=== PATIENT | female | born 1935 | race Caucasian/White ===

== ENCOUNTER 2019-06-06 08:49 | Outpatient (CLI) | payer MEDICARE ==
[2019-06-06] MEDS ORDERED: Gadobenate Dimeglumine 529 MG/1 ML (20ML VIAL) ONE (15:27)
--- NOTE | 2019-06-06 15:42 | PET ---
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 Exam requested for initial staging. Patient also has a history of breast cancer which was treated twelve years ago. TECHNIQUE: PET scan with CT attenuation correction was performed from the base of the brain to the proximal thig hs following the intravenous administration of 12.5 millicuries of 15-fluorodeoxyglucose in the right antecubital fossa. COMPARISON: None. CORRELATION: None. FINDINGS: There is hypermetabolic activity in the rectosigmoid with an SUV of 11.6. Hypermetabolic lymph nodes are seen in the mediastinum with the maximum SUV of 12.5 in the right justine hepatic region, 5.7 in the right hilum, 6 in the left hilum, 5.4 in the portacaval, 4.8 in the peripa ncreatic and 4 in the aortocaval lymph nodes. There is a hypermetabolic lung nodule in the right upper lobe with an SUV of 3.3. Numerous hypermetabolic liver lesions are seen with a maximum SUV of 10.5 in the right lobe and 7.1 i n the left lobe. There are hypermetabolic foci in the L3 vertebral body with an SUV of 7 and in the right humerus with an SUV of 5.4. No hypermetabolic adrenal nodules are seen. There is physiologic activity in the GI and tracts and the visualized portions of the brain. The CT scan used for attenuation correction demonstrates no evidence of pleural effusions or ascites. Numerous bilateral pulmonary nodules are seen, most of these measure up to 1 cm. Only one of these i s hypermetabolic and located in the right upper lobe. A 5.7 cm aneurysmal dilatation of the abdominal aorta is seen. There is sigmoid diverticulosis. IMPRESSION: 1. Findings are consistent with extensive metastatic disease. 2. A 5.7 cm Abdominal aortic aneurysm. POS: [facility]
--- NOTE | 2019-06-07 08:57 | MRI ---
MRI OF THE PELVIS WITH AND WITHOUT IV CONTRAST: INDICATION: Rectal cancer. COMPARISON: PET/CT dated 06/06/2019. TECHNIQUE: Multiplanar multisequence MR images were obtained of the pelvis with and without contrast utilizing 1 4 cc of MultiHance. FINDINGS: There is a large circumferential mass involving the upper, mid and lower rectum measuring 9 cm in its greatest length and extending down to the level of the anal verge. There is extension beyond the posterior wall of the rectum along its mid to lower segment with extramural tumor extending to the le juan of the posterior right lower mesial rectal fascia. No pathologically enlarged lymph nodes are grossly evident. There are scattered diverticula involving the colon. No free fluid is noted. There i s mild fluid distention of the left trochanteric bursa which may reflect mild trochanteric bursitis. IMPRESSION: T3 lesion of the upper to mid and lower rectum with mesorectal fascial involvement. No suspicious nod es are identified. This is consistent with a localized staging of T3 MRF positive-N0. Transcribed Date/Time: 06/07/2019 9:09 AM
== END 2019-06-06 08:50 | disposition home or self-care (01) ==
LOC: MRI 08:49 → TBSIIMAG 08:50
PROVIDERS: ATTEND Internal Medicine Hematology & Oncology
DX: C20 Malignant neoplasm of rectum (principal); I71.4 Abdominal aortic aneurysm, without rupture
CPT/HCPCS: 72197; 78815; A9552; A9577

== ENCOUNTER 2019-08-13 14:13 | Outpatient (CLI) | payer MEDICARE ==
--- NOTE | 2019-08-13 14:43 | PET ---
EXAM: PET/CT HISTORY: Rectal cancer; response to chemotherapy TECHNIQUE: PET scanning with CT attenuation correction was performed from the base of the brain to the proximal thighs following the intravenous administration of 10.6 millicuries [id number]. COMPARISON: PET/CT dated June 06, 2019 FINDINGS: Biodistribution:The biodistribution for the exam appears acceptable. Head and neck: There is appropriate background activity within the brain. No hypermetabolic lymphaden opathy is grossly evident. There is some slightly increased activity seen within the thyroid gland Thorax: There has been reduction in the hypermetabolic uptake involving the scattered metastatic pulm onary lesions. Previously seen 1.6 cm left upper lobe pulmonary nodule now measures 1.3 cm with a peak activity of 1.71 whereas a peak activity on prior exam and was 2.32. The mean activity now is 1. 43 where previously was 1.68. A 1.2 cm right upper lobe pulmonary nodule previously measuring 1.7 cm now has a peak activity at 2.81 and a mean activity 2.08 were previously it had a peak activity at 8.48 and a mean activity of 5.14. Many of the mediastinal and hilar enlarged lymph nodes demonstrate decreased metabolic uptake. One of the most conspicuous was within the precarinal region. The lymph node previously had a peak activity of 12.5 to now has a peak activity at 2.77 and a mean activity of 2.21. Many of these lymph nodes are slightly less prominent in size. Abdomen and pelvis: There is expected background activity within the GI and systems.There is decre ase in metabolic activity associated with many of the hypermetabolic metastatic lesions of the liver. One of the most conspicuous lesions is seen within the lateral left hepatic lobe now measuring 4.8 cm. This lesion has a peak activity of 4.8 and mean activity of 3.8. There is a large hypermetabolic lesion still remaining in the right anterior hepatic dome with a peak activity 9.8 and mean activity 7.14. The peak activity is lesion was previously 10.64. There is been resolution of the hypermetabolic activity involving the portacaval lymphadenopathy. No new hypermetabolic retroperi toneal lymphadenopathy is evident. There is a stable 5.6 cm infrarenal abdominal aortic aneurysm. The hypermetabolic uptake seen circumferentially involving the mid to lower rectum is relatively stab le. Peak activity associated with the rectal mass is 12.81 and mean activity of 10.81. Previously the peak activity was 11.76 with a mean activity 9.09. There is slightly more activity seen extending beyond the right posterolateral margin of the mid to lower rectum to the level of the levator ani indicating worsening extramural extension of disease. This is best seen on image [address] examin ation. Osseous structures and skin: There is now diffuse increased marrow activity throughout the pelvis, pr oximal femurs and spine likely reflective of marrow stimulation from chemotherapy. The previously noted hypermetabolic lesions within the L3 vertebral body consistent with metastatic disease is obscu red by this background marrow activity. Small focus of activity previously seen within the proximal right humerus is also obscured by background marrow activity. IMPRESSION: Abnormal PET/CT. 1. Findings a mixed response to therapy. The rectal mass demonstrates persistent prominent hypermetab olic activity with worsening disease extension along the right posterolateral aspect of the lower rectum consistent with worsening extramural spread of disease. There has been changes of response to therapy involving a malignant lymphadenopathy, pulmonary metastatic disease and hepatic metastatic disease. 2. Diffuse increased marrow activity seen throughout the visualized axial skeleton and proximal appen dicular skeleton likely reflective of underlying marrow stimulation from chemotherapy. The degree of background uptake limits evaluation of metastatic disease previously seen within the lumbar spine and proximal right humerus.
== END 2019-08-13 14:14 | disposition home or self-care (01) ==
LOC: PET 14:13
PROVIDERS: ATTEND Internal Medicine Hematology & Oncology
DX: C20 Malignant neoplasm of rectum (principal); K62.89 Other specified diseases of anus and rectum; R59.0 Localized enlarged lymph nodes; C78.7 Secondary malignant neoplasm of liver and intrahepatic bile duct; C78.00 Secondary malignant neoplasm of unspecified lung
CPT/HCPCS: 78815; A9552

== ENCOUNTER 2019-10-30 16:00 | Inpatient (IN) | payer MEDICARE ==
--- NOTE | 2019-10-30 16:29 | RAD ---
EXAM: CHEST ONE VIEW HISTORY: Dyspnea. Malignant neoplasm of rectum. COMPARISON: PET/CT exam on 08/13/2019. FINDINGS: There is opacification of approximately two thirds the left hemithorax likely related to a large left pleural effusion and atelectasis. Underlying lesion cannot be entirely excluded. The left cardiac border is obscured. There are a few scattered pulmonary nodules seen at the right lung base with sugg estion of additional very small pulmonary nodules in each upper lobe. A right internal jugular vein CT injectable Mediport catheter is noted in place the tip overlying the most proximal SVC. Vascular calcifications are seen in the thoracic aorta. There is suggestion of mild nodular prominence in the left hilar region which could be related to lymphadenopathy or promine nce of the pulmonary artery segment in this region. Degenerative changes are seen in the spine. Surgical clips overlie the right upper quadrant IMPRESSION: 1. Moderately large left pleural effusion and atelectasis. Underlying lesion could not be entirely ex cluded. 2. Bilateral pulmonary nodules suggesting metastatic disease. 3. Suggested nodular prominence in a left hilar region which could be related to lymphadenopathy. Thi s difficult to adequately evaluate on this exam.
[2019-10-30] MEDS ORDERED: Cefepime 1 GM VIAL ONE (16:32)
[2019-10-30 16:33] LABS: #Lymphocytes 0.4 thou/uL (1.20-3.40); #Monocytes 1.1 thou/uL (0.11-0.59); #Neutrophils 8.9 thou/uL (1.40-6.50); %Basophils 0.1 % (0.0-1.0); %Eosinophils 0.3 % (0.0-10.0); %Lymphocytes 3.7 % (21.0-51.0); %Monocytes 10.4 % (0.0-10.0); %Neutrophils 85.4 % (42.0-75.0); Hemoglobin 13.7 g/dL (12.0-16.0); Mean Corpuscular HGB CONC 31.8 g/dL (32.0-36.0); Mean Corpuscular Hemoglobin 32.9 pg (27.0-31.0); Mean Platelet Volume 6.7 fL (7.4-10.4); Platelet Count 223 thou/uL (130-400); RBC Distribution Width 18.4 % (11.5-14.5); Red Blood Cell (RBC) Count 4.18 mill/uL (4.20-5.40); White Blood Cell (WBC) Count 10.4 thou/uL (4.8-10.8)
[2019-10-30 16:35] LABS: Actual Bicarbonate (HCO3a) 31.8 mEq/L (22-28); Analyzer IN Cardio ER; Base Excess (BEa) 3.7 mEq/L (-2.0 to +3.0); Calcium, Ionized 1.16 mmol/L (1.12-1.30); Carboxyhemoglobin (COHb) 0.8 gm% (0.0-3.0); O2 Tension (PaO2) 69.8 mmHg (> 60.0); Potassium - ABG Lab 4.16 mmol/L (3.70-5.30); pH, Arterial 7.31 (7.35-7.45)
[2019-10-30 16:37] LABS: Puncture Site LB
[2019-10-30 16:50] LABS: ALT (SGPT) 23 U/L (8-55); AST (SGOT) 46 U/L (5-34); Albumin 3.4 g/dL (3.4-4.8); Alkaline Phosphatase 208 U/L (40-110); Anion Gap 14 mmol/L (10-20); BUN (Urea Nitrogen) 19 mg/dL (9.8-20.1); Bilirubin, Total 0.4 mg/dL (0.2-1.2); CK (CPK) 157 U/L (29-168); Calc. Creatinine Clearance 0 mL/min (70-130); Calcium 8.6 mg/dL (7.8-10.44); Carbon Dioxide 30 mmol/L (23-31); Chloride 95 mmol/L (98-107); Estimated GFR-MDRD 70; Globulin 2.8 g/dL (2.4-3.5); Glucose 128 mg/dL (83-110); Potassium 4.5 mmol/L (3.5-5.1); Protein, Total 6.2 g/dL (6.0-8.3); Sodium 134 mmol/L (136-145)
[2019-10-30 16:57] LABS: Anisocytosis SLIGHT = 6-15 cells (100X) (0-5/hpf); Band 4 % (5-11); Lymphocytes 3 % (21-51); MDiff Complete? YES; Macrocytosis SLIGHT = 6-15 cells (100X) (0-5/hpf); Monocytes 8 % (0-10); Neutrophil 84 % (42-75); Platelet Morphology Comment Appears Adequate; Polychromasia SLIGHT = 2-3 cells (100X) (0-2/hpf); Reactive Lymphocytes 1 % (0-10)
[2019-10-30 17:06] LABS: Bacteria/HPF None Seen HPF (None Seen); Bilirubin Negative (Negative); Blood, Urine Negative (Negative); Clarity Clear (Clear); Glucose, Urine (Dipstick) Normal (Negative); Leukocyte 250 Leu/uL (Negative); Nitrite Negative (Negative); Protein, Urine (Dipstick) 50 mg/dL (Neg-Trace); RBC/HPF 0-3 HPF (0-3); Squamous Epithelial 0-3 HPF (0-3); Urobilinogen Normal mg/dL (Less than 2)
[2019-10-30] MEDS ORDERED: Acetaminophen 325 MG TAB PO PRN (19:41)
[2019-10-30] MEDS ORDERED: Guaifenesin DM 100-10/5 ML UDCUP PO PRN (19:41)
[2019-10-30] MEDS ORDERED: Ondansetron ODT 4 MG TAB PO PRN (19:41)
[2019-10-30] MEDS ORDERED: Acetaminophen 650 MG Suppository PR PRN (19:41)
[2019-10-30] MEDS ORDERED: Senokot S 8.6-50 MG TAB PO PRN (19:41)
[2019-10-30] MEDS ORDERED: Ondansetron PF 4 MG/2 ML Vial IVP PRN (19:41)
--- NOTE | 2019-10-30 20:11 | HP ---
PRIMARY CARE PHYSICIAN: Fabio Edgar in [place]. CHIEF COMPLAINT: Shortness of breath. HISTORY OF PRESENT ILLNESS: This is an 84-year-old white female with a known history of metastatic rectal cancer, metastatic to the lungs and abdomen. She has had a significant decline over the last 2 weeks, has had a lot of swelling in her lower extremities and her arms as well. She has been getting radiation therapy further. The primary cancer in her rectum with lots of diarrhea and irritation of the tissues secondary to this, and then she started having some difficulty breathing starting over the weekend. This progressed over the last few days. She had radiation therapy appointment and went to see Dr. Torres and he found that her O2 sats were 60% on room air, so she sent to the emergency room. She was found to be in respiratory distress by the ER physician. He initially thought he might have to intubate, but was able to get her calmed down with a BiPAP. Her oxygen saturations are now running well. She is here, is much more comfortable and has actually falling asleep, now that she does not have to struggle so hard to breathe. All history taken from the ER physician and from one of the sons, who was at bedside. The patient's son reports that the patient has been getting a little confused over the weekend as well. No fevers. No coughing. No history of asthma or lung disease. REVIEW OF SYSTEMS: Unable to obtain secondary to the patient's somnolent mental status and being on the BiPAP mask. When I do wake her up, she is a little bit confused and can answer some basic questions. PAST MEDICAL HISTORY: 1. Rectal cancer with metastases all over her body. 2. History of breast cancer. 3. Hypertension. 4. Hypothyroidism. PAST SURGICAL HISTORY: 1. Bladder lift. 2. Hysterectomy. SOCIAL HISTORY: The patient used to smoke cigarettes, but quit several decades ago. She drinks socially. No illicit drug use. She is a , lives by herself with two of her sons and her daughter in [place], taking care of her. She also has a son, who is a hook and eye attacher in [place]. She normally gets around with a walker in the home. She has had several falls over the weekend, though she has more weak and short of breath. FAMILY HISTORY: No significant contributing family history. ALLERGIES: MORPHINE. CURRENT MEDICATIONS: Unknown. Son here does not have her medication list and the patient is not able to tell us what she is on right now, though they do know she has been told to take some Imodium due to diarrhea causing a diaper type rash since getting the radiation therapy. PHYSICAL EXAMINATION: VITAL SIGNS: Blood pressure 128/69, pulse 79, respirations 16, temperature 98.1, and O2 saturation 97% on BiPAP. GENERAL: This is a well-developed, obese white female, who is very somnolent right now, but breathing comfortably on the BiPAP. HEENT: Pupils equal, round, and reactive to light. Oropharynx clear without lesions, erythema, or exudate. NECK: Supple. No lymphadenopathy. No thyroid nodules or enlargement. HEART: Regular rate and rhythm. No murmurs, rubs, or gallops. LUNGS: The patient has good breath sounds on the right. Some decreased breath sounds in the left base. No significant increased work of breathing or tachypnea currently. ABDOMEN: Soft, obese, and nontender to palpation. Normoactive bowel sounds. No hepatosplenomegaly or other masses. EXTREMITIES: The patient has 2+ pitting edema in the bilateral lower extremities and some mild edema in the bilateral upper extremities. SKIN: No rashes or lesions noted. NEUROLOGIC: The patient is moving all extremities and no facial droop. PSYCHIATRIC: The patient is somnolent, is able to tell me whom she is, but is little confused about where she is right now. LABORATORY DATA: CBC with a normal white blood cell count, normal hemoglobin and hematocrit, normal platelet count. Complete metabolic panel notable for sodium of 134, chloride 95, glucose 128. AST of 46, and alkaline phosphatase of 208. The rest was normal. Lactic acid was negative. Troponin was negative x1. Urinalysis showed some moderate leuk esterase, 11 to 20 white blood cells, but no bacteria. Her ABG done on BiPAP showed a pH of 7.31, pCO2 of 65, and a pO2 of 69. X-ray, I did review the chest x-ray done in the emergency room along with the radiologist's report. It does show a moderately large left pleural effusion obscuring about 2/3 of the left hemithorax, also shows some bilateral pulmonary nodules suggesting metastatic disease. ASSESSMENT: 1. Acute hypoxic and hypercapnic respiratory failure. The patient is improved on BiPAP. However, she is very somnolent. The concern is that she will may decline with further CO2 retention. If that is the case, then she may end up needing intubation, for now though she is breathing easily and saturating well. I did discuss the possibly of intubation with son, who is here and he stated that his mom as far as they know was expressed that she wanted all initial resuscitation things done including chest compression, shocks, and intubation. 2. Pleural effusion, likely malignant. No evidence of infection at this time. The patient was given IV antibiotics in the emergency room, but will likely continue those unless we find evidence of infection. Dr. Goldman was consulted by the emergency room. His plan is to do a thoracentesis in the morning. 3. Metastatic rectal cancer. We will have Oncology consult outpatient from the hospital. 4. Severe bilateral lower extremity edema with a normal albumin and no history of congestive heart failure. We will check a brain natriuretic peptide, however, suspicious that this is more due to her cancer. We will check a bilateral lower extremity Doppler, though to see, make sure she does not have DVTs. 5. Gastrointestinal prophylaxis, put the patient on Pepcid twice a day. 6. Deep venous thrombosis prophylaxis, put the patient on Lovenox subcu. CODE STATUS: The patient is currently a full code. Her medical power of real estate associate attorney per the brother, Radha is her oldest son, whose name is Hector Tomas as well as her daughter, Marcelina Avalos. Job ID: [id number]
[2019-10-30] MEDS: Famotidine 20 MG TAB PO SCH (20:49)
[2019-10-31 04:03] LABS: Anion Gap 11 mmol/L (10-20); BUN (Urea Nitrogen) 16 mg/dL (9.8-20.1); Calc. Creatinine Clearance 76 mL/min (70-130); Calcium 8.1 mg/dL (7.8-10.44); Carbon Dioxide 27 mmol/L (23-31); Chloride 99 mmol/L (98-107); Estimated GFR-MDRD 88; Glucose 84 mg/dL (83-110); Potassium 4.4 mmol/L (3.5-5.1); Sodium 133 mmol/L (136-145)
[2019-10-31 04:41] LABS: Band 10 % (5-11); Hemoglobin 11.5 g/dL (12.0-16.0); Lymphocytes 4 % (21-51); MDiff Complete? YES; Mean Corpuscular HGB CONC 32.1 g/dL (32.0-36.0); Mean Corpuscular Hemoglobin 33.1 pg (27.0-31.0); Mean Platelet Volume 6.6 fL (7.4-10.4); Monocytes 9 % (0-10); Neutrophil 77 % (42-75); Platelet Count 178 thou/uL (130-400); RBC Distribution Width 18.4 % (11.5-14.5); Red Blood Cell (RBC) Count 3.48 mill/uL (4.20-5.40); White Blood Cell (WBC) Count 9.4 thou/uL (4.8-10.8)
[2019-10-31 08:39] LABS: Pleural Fluid, Protein 3.1 g/dL; RBC Count-Automated (BF) 92626 /cumm; WBC/Nucleated-Auto (BF) 257 uL
[2019-10-31 08:59] LABS: BF Color Red; Body Fluid Source Thoracentesis Fluid; Clarity Cloudy/Turbid (Clear); Tube # 3
[2019-10-31] MEDS ORDERED: Prevnar 13-Val Conj/PF 0.5 ML SYRINGE IM ONE (09:00)
[2019-10-31] MEDS ORDERED: FLU VACC TS2019-20(65YR UP)/PF 180 MCG/0.5 ML SYRINGE IM ONE (09:00)
[2019-10-31 09:02] LABS: Fluid, pH - Pleural Fld Greater than 7.50 (7.60 - 7.66)
--- NOTE | 2019-10-31 09:25 | RAD ---
PORTABLE CHEST: Date: 10/31/2019 HISTORY: Thoracentesis. COMPARISON: 10/30/2019. FINDINGS: The large left effusion noted on 10/30/2019 has been removed. There continue to be small bilateral ef fusions. No pneumothorax. The MediPort catheter is unchanged. No other significant change. IMPRESSION: Post left thoracentesis. Small bilateral effusions remain, slightly larger on the left. No evidence o f pneumothorax. POS: [facility]
[2019-10-31] MEDS: Famotidine 20 MG TAB PO SCH ×2 (09:49→20:19)
[2019-10-31] MEDS: Enoxaparin Sodium 40 MG/0.4 ML SYRINGE SC SCH (09:50)
[2019-10-31 10:10] LABS: BF Segmented Neutrophils 14 %; Cell Count Non Hematic 62 %; Eosinophils 4 %; Lymphocytes 20 %
--- NOTE | 2019-10-31 10:12 | PDOC.HOSPP ---
- Subjective Encounter Date: 10/31/19 Encounter Time: 11:30 Subjective: Patient feeling much better after 2.5L of fluid removed by thoracentesis this AM. Off BiPAP, breathing easily on nasal cannula. No other complaints. - Objective Vital Signs & Weight: Vital Signs (12 hours) Temp Pulse Resp Pulse Ox 10/31/19 08:22 83 28 H 90 L 10/31/19 08:00 98.3 F 93 L 10/31/19 03:32 98.2 F 10/31/19 00:00 98.9 F Weight Weight 166 lb Most Recent Monitor Data Heart Rate from ECG 74 NIBP 134/61 NIBP BP-Mean 85 Respiration from ECG 17 SpO2 93 Result Diagrams: 10/31/19 03:21 10/31/19 03:21 Hospitalist ROS - Review of Systems Constitutional: denies: fever, chills Respiratory: denies: cough, shortness of breath Cardiovascular: reports: edema. denies: chest pain, palpitations Gastrointestinal: denies: nausea, vomiting, abdominal pain Genitourinary: denies: dysuria, hematuria - Medication Medications: Active Medications Generic Name Dose Route Start Last Admin Trade Name Freq PRN Reason Stop Dose Admin Albuterol/Ipratropium 3 ml 10/31/19 08:14 10/31/19 08:22 Duoneb NEB 3 ml [id number] PRN Administration SOB &/or Wheezing Enoxaparin Sodium 40 mg 10/31/19 09:00 10/31/19 09:50 Lovenox SC 40 mg 0900 EV Administration Famotidine 20 mg 10/30/19 21:00 10/31/19 09:49 Pepcid PO 20 mg BID EV Administration Levofloxacin 750 mg/ Device 150 mls @ 100 mls/hr 10/31/19 09:00 10/31/19 09: 50 IVPB 150 mls Q24HR EV Administration - Exam General Appearance: NAD, awake alert ENT: moist mucosa Heart: RRR, no murmur, no gallops, no rubs Respiratory: CTAB Respiratory - other findings: good air movement bilaterally Gastrointestinal: soft, non-tender, non-distended, normal bowel sounds Extremities: 2+ LE edema Neurological: no focal deficits Psychiatric: normal affect, normal behavior, A&O x 3 Hosp A/P (1) Acute respiratory failure with hypoxia and hypercarbia Code(s): J96.01 - ACUTE RESPIRATORY FAILURE WITH HYPOXIA; J96.02 - ACUTE RESPIRATORY FAILURE WITH HYPERCAPNIA Status: Acute (2) Pleural effusion Code(s): J90 - PLEURAL EFFUSION, NOT ELSEWHERE CLASSIFIED Status: Acute (3) Rectal cancer metastasized to lung Code(s): C20 - MALIGNANT NEOPLASM OF RECTUM; C78.00 - SECONDARY MALIGNANT NEOPLASM OF UNSPECIFIED LUNG Status: Acute (4) Lower extremity edema Code(s): R60.0 - LOCALIZED EDEMA Status: Acute - Plan Patient s/p thoracentesis today, CXR with minimal fluid remaining Heme/Onc consult- awaiting fluid analysis, if is malignant effusion will recommend transition to hospice Palliative care LE doppler negative for DVT DVT proph: Lovenox GI proph: Pepcid
[2019-10-31] MEDS ORDERED: Polyethylene Glycol 3350 17 GM Packet PO PRN (10:15)
[2019-10-31] MEDS ORDERED: Lorazepam 0.5 MG TAB PO PRN (10:15)
--- NOTE | 2019-10-31 10:22 | CON ---
DATE OF CONSULTATION: HISTORY OF PRESENT ILLNESS: Ms. Tomas is an 84-year-old female from [place], [place], presented to the hospital with shortness of breath. Former smoker. Denies any chills or sweats. She was coughing without any fever. She apparently fell several times, has a bruise in the left chest. X-ray showed rather large left pleural effusion. She has difficulty with ambulation. No prior history of pneumonia, TB, or asthma. PAST MEDICAL HISTORY: 1. History of rectal cancer. 2. History of breast cancer. 3. Hypothyroidism. 4. Hypertension. PAST SURGICAL HISTORY: Previous surgeries include; 1. Hysterectomy. 2. Bladder lift surgery. Former smoker. HOME MEDICATIONS: Include; 1. Zoloft 50. 2. Synthroid 100. 3. Ativan 0.5. 4. Benazepril 20. 5. Amlodipine 10. REVIEW OF SYSTEMS: Otherwise unremarkable. PHYSICAL EXAMINATION: VITAL SIGNS: Blood pressure 119/72, pulse 75, respiratory rate 18, saturations are 95% on BiPAP, the patient's nasal O2 is 94%. CHEST: Decreased breath sounds in left lung. Right lung, unremarkable. CARDIAC: Normal S1, S2. No gallops. ABDOMEN: No masses. LABORATORY AND DIAGNOSTIC DATA: X-ray shows a very large left-sided pleural effusion consistent with metastatic disease. Additional lab data shows white count 9,000, H and H of 11 and 36, platelet count 178. Blood gas; pO2 is 69, pCO2 is . Lytes normal. Sodium 133. BNP is normal. ASSESSMENT AND PLAN: Respiratory failure secondary to large pleural effusion, metastatic cancer, history of breast cancer, history of rectal cancer, apparently on chemoradiation, followed by local Oncology. Former smoker. Thoracentesis needs to be performed. Otherwise, neb treatment, supportive care, empiric steroids. We will follow. Consultation note 70 minutes, 50% direct patient care, this is being followed by thoracentesis. Job ID: [id number]
[2019-10-31] MEDS ORDERED: traMADol HCl 50 MG TAB PO PRN (10:45)
--- NOTE | 2019-10-31 11:22 | ULT ---
ULTRASOUND WITH DOPPLER DUPLEX VENOUS LOWER EXTREMITIES BILATERAL: HISTORY: An 84-year-old female with bilateral lower extremity edema. TECHNIQUE: Color-flow Doppler, spectral wave-form analysis of pulsed Doppler and ellsworth-scale imaging with aniya chris and augmentation were used to evaluate the bilateral common femoral, femoral, popliteal, posteri or tibial and superficial femoral, veins and the proximal portions of the profunda femoral and greate r saphenous veins. FINDINGS: There is normal compressibility, demonstration of blood flow by color Doppler and pulsed Doppler and response to augmentation in all interrogated veins. In the left popliteal fossa there is an approximately 4 x 1 x 2.5 cm cystic lesion. There is at least mild superficial soft tissue edema in the bilateral lower extremities. IMPRESSION: 1. No deep vein thrombosis in the bilateral lower extremities. 2. Bilateral lower extremity soft tissue edema. 3. Left 's cyst. jnr POS: [facility]
[2019-10-31] MEDS: methylPREDNISolone Sod Succ 40 MG VIAL IVP SCH ×2 (12:05→18:07)
--- NOTE | 2019-10-31 12:11 | CON ---
DATE OF CONSULTATION: REASON FOR CONSULTATION: Rectal cancer. HISTORY OF PRESENT ILLNESS: Ms. Tomas is an 84-year-old female with stage IV rectal adenocarcinoma. She was initially treated with chemo with partial response. She then started radiation with Xeloda in September. This past week, she has been off radiation secondary to wound in her perineum. She has been having increasing shortness of breath. She has fallen at home. She saw Dr. Torres yesterday to discuss resuming radiation. She was extremely weak and her room air O2 saturation was 60%. She was brought to the emergency room for evaluation. Chest x-ray showed a large left pleural effusion. She had bilateral pulmonary nodules, suggestive of metastatic disease. Dr. Goldman was consulted and performed a thoracentesis. Cytology currently pending. The patient is breathing more comfortable, her O2 saturation is now 90% on nasal cannula. She was seen at bedside with her 2 children present. She is able to speak in complete sentences, complains of rectal pain only. PAST MEDICAL HISTORY: 1. Stage IV malignant adenocarcinoma of the rectum. 2. Hypertension. 3. High cholesterol. 4. Arthritis. 5. Thyroid disease. 6. Hemorrhoids. 7. Breast cancer in 2008. PAST SURGICAL HISTORY: 1. Carpal tunnel syndrome repair. 2. Lumpectomy. 3. Cholecystectomy. 4. Appendectomy. 5. Hysterectomy. ALLERGIES: TO MORPHINE. HOME MEDICATIONS: 1. Amlodipine 10. 2. Benazepril 20. 3. Xeloda. 4. Lorazepam 0.5. 5. Sertraline 50. 6. Synthroid 100 mcg. FAMILY HISTORY: Brother had esophageal cancer. SOCIAL HISTORY: She is a , has 4 children. Lives alone. No alcohol, tobacco, or illicit drug use. REVIEW OF SYSTEMS: A 10-point review of systems is negative except for noted in HPI. PHYSICAL EXAMINATION: VITAL SIGNS: Temperature is 98.3, heart rate 75, respiratory rate 18, BP is 104/60, and she is 91% on 5 L. GENERAL: This is a chronically ill-appearing female, in no acute distress. HEENT: Normocephalic and atraumatic. Pupils equal and reactive to light. NECK: Supple. CV: Regular rate and rhythm. LUNGS: Clear anterior. ABDOMEN: Soft and nontender. Bowel sounds are positive. EXTREMITIES: No clubbing or cyanosis. SKIN: She has breakdown in her perineum from radiation. : Christensen catheter in place with clear yellow urine. HEMATOLOGIC: No petechiae or purpura. NEUROLOGIC: Nonfocal. PERTINENT LABORATORY DATA AND X-RAYS: Current WBCs are 9.4, hemoglobin 11.5, hematocrit 36.0, and platelet count 178,000. She has 77% neutrophils, 10% bands, and 4% lymphocytes. Sodium is 133, potassium 4.4, chloride 99, CO2 is 27, BUN is 16, creatinine 0.64, lactic acid is 2, calcium 8.1, total bilirubin is 0.4, AST is 46, ALT is 23, and alkaline phosphatase is 208. Troponin is negative. BNP is 129. Serum total protein 6.2, albumin 3.4, and globulin 2.8. ASSESSMENT: 1. Metastatic rectal adenocarcinoma, currently on chemo radiation. 2. Pleural effusion, likely malignant. DISCUSSION: The patient has been symptomatically improved with her thoracentesis. Await cytology, although this is likely malignant. The patient agrees that she is unable to live by herself any longer. We will ask spring encaser to see the patient to discuss long term versus a custodial. The family understands that if this is progression while on Xeloda and radiation, she will likely be referred to hospice. Case was discussed with Dr. Philip. Thank you for the consult. Job ID: [id number]
--- NOTE | 2019-10-31 12:12 | OP ---
DATE OF PROCEDURE: 10/31/2019 PROCEDURE PERFORMED: Left-sided thoracentesis. INDICATION: Pleural effusion. DESCRIPTION OF PROCEDURE: After informed consent, the left posterior thorax was cleaned with chlorhexidine and 1% lidocaine was infiltrated in the 9th intercostal space in the posterior axillary line. Pleural cavity entered and bloody effusion was removed. Thereafter, using an 8-Haitian catheter, a total of 2500 mL was removed without difficulty. The patient's pleural fluid was sent for cytology and culture. The patient tolerated the procedure well, awaiting results of the sample from the procedure above. Job ID: [id number] MTDD
--- NOTE | 2019-10-31 14:52 | PDOC.PALCO ---
Palliative Care Consult - Consult Details Requesting Physician: Dr Branch Reason for Consult: goals of care, advance directives assistance, family support Family Members Present: Patient son and daughter in law. - Pertinent HPI 84 year old female who has been receiving treatment at the oncology clinic for stage IV rectal adenocarcinoma. She was initially treated with chemo then radiation and Xeloda. Not able to tolerate radiation this week secondary to the wound to her perineum. Patient and family confirm increase in shortness of breath at home, began having to use a walker, and has had two recent falls. This is unusual for Ms Tomas as she has been active and living independently. { resented to the clinic and found to have a poor o2 saturation, sent to the emergency room for evaluation. Chest x-ray identified left pleural effusion and bilateral pulmonary nodules that are thought to be metastatic disease. Admitted for further evaluation to [facility], Dr Goldman performed a thoracentesis, cytology pending. - Pertinent PMH IV Malignant adenocarcinoma of the rectum, HTN, HDL, Thyroid disease, Breast CA 2008 - Social History Smoking Status: Former smoker Smoking: quit greater than 1 year Alcohol Use: none Drug Use History: none Living Situation: independent - Medications MAR Reviewed: Yes - Allergies Allergies/Adverse Reactions: Allergies Allergy/AdvReac Type Severity Reaction Status Date / Time morphine Allergy Unknown Verified 10/31/19 02:06 - Subjective Awake, eating lunch. Noted to become short of breath with conversation. Pain to perineum. - ROS Constitutional: alert, weakness Eyes: other ENT: other (negative for difficulity swallowing) Respiratory: shortness of breath - Objective Vital Signs: Vital Signs - Most Recent Temp Pulse Resp BP Pulse Ox 98.7 F 83 28 H 90 L 10/31/19 12:00 10/31/19 08:22 10/31/19 08:22 10/31/19 08:22 - Physical Exam Respiratory: no wheezing Deviation from normal: mildly labored with conversation Cardiovascular: RRR Gastrointestinal: soft, non-tender Genitourinary: to catheter Musculoskeletal: no cyanosis, no clubbing, edema present Neurology: moves all 4 limbs Skin: cap refill <2 seconds, normal turgor, bruising Deviation from normal: wound to perineum Psychiatric: A&O x 3, normal affect - Problem List (1) Palliative care encounter Code(s): Z51.5 - ENCOUNTER FOR PALLIATIVE CARE Current Visit: Yes Status: Acute (2) Physical deconditioning Code(s): R53.81 - OTHER MALAISE Current Visit: Yes Status: Acute (3) Acute respiratory failure with hypoxia and hypercarbia Code(s): J96.01 - ACUTE RESPIRATORY FAILURE WITH HYPOXIA; J96.02 - ACUTE RESPIRATORY FAILURE WITH HYPERCAPNIA Current Visit: Yes Status: Acute (4) Lower extremity edema Code(s): R60.0 - LOCALIZED EDEMA Current Visit: Yes Status: Acute (5) Pleural effusion Code(s): J90 - PLEURAL EFFUSION, NOT ELSEWHERE CLASSIFIED Current Visit: Yes Status: Acute (6) 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 Medical Power of Peer Support Specialist and Advance directives on the chart. Discussed pending results with the son. Family had been looking at transitioning to assisted living as they feel it is unsafe for her to continue to live independently, but now feel that she will need a higher level of care. [facility] may be a resource as patient lives in [place] but does not desire to go to another facility "[facility]". Son states that he and his siblings have been discussing his mothers decline prior to recent findings of pulmonary nodules with pulmonary effusion. Interested in Hospice and asked questions in relation to what hospice offers. Family understands that Medicare does not pay for both intermediate and hospice. Ms Tomas is a patient of Dr Trejo in [place] and he has privileges at [facility]. Consideration may be given to discussing with Dr Trejo to accept patient with comfort measures at the facility. Dianne Concepcion RNclaims correspondence clerk also following patient, please see RN notes in note section. [75] minutes spent on this encounter with >50% of the time in counseling and coordination of care. Thank you for this very appropriate consult.
[2019-10-31 15:07] VITALS: BMI 25.9
[2019-10-31] MEDS: traMADol HCl 50 MG TAB PO PRN (20:18)
[2019-10-31] MEDS ORDERED: Non-Formulary Item 1 EACH (Sertraline Hcl [Sertraline Hcl] 50 MG) PO SCH (21:00)
[2019-11-01] MEDS: methylPREDNISolone Sod Succ 40 MG VIAL IVP SCH ×2 (00:15→06:19)
[2019-11-01] MEDS ORDERED: Non-Formulary Item 1 EACH (Gluc Su/Chondro Su A/Vit C/Mn [Glucosamine 1,500 Complex Capsu PO SCH (09:00)
[2019-11-01] MEDS ORDERED: GLUCOSAMINE COMPLEX PO SCH (09:00)
[2019-11-01] MEDS ORDERED: Fish Oil 1,000 MG CAP PO SCH (09:00)
[2019-11-01] MEDS ORDERED: CHONDROITIN SULFATE A SODIUM 1200 MG PO SCH ×2 (09:00)
--- NOTE | 2019-11-01 09:30 | PRG ---
DATE OF SERVICE: 11/01/2019 SUBJECTIVE: This morning, she is awake, alert, and responsive, better, less pain, less shortness of breath. OBJECTIVE: VITAL SIGNS: Saturations are 95% on 2 L, temperature 97, pulse 81, blood pressure 113/65. CHEST: No wheezing or crackles. CARDIAC: Normal S1 and S2. No gallops. ABDOMEN: No masses. IMPRESSION: 1. Bloody right pleural effusion, exudative. 2. Previous history of rectal cancer. PLAN: Pulmonary yanez, disposition as per Oncology. Switch over to oral medication. Job ID: [id number]
[2019-11-01] MEDS: traMADol HCl 50 MG TAB PO PRN ×2 (10:24→18:51)
[2019-11-01] MEDS: Enoxaparin Sodium 40 MG/0.4 ML SYRINGE SC SCH (10:26)
[2019-11-01] MEDS: Levothyroxine Sodium 100 MCG TAB PO SCH (10:27)
[2019-11-01] MEDS: Famotidine 20 MG TAB PO SCH ×2 (10:28→20:27)
[2019-11-01] MEDS ORDERED: predniSONE 20 MG TAB PO SCH (10:45)
--- NOTE | 2019-11-01 11:54 | PDOC.HOSPP ---
- Subjective Subjective: Comfortable today. States pain is well controlled on Tramadol. Breathing well on NC. No new complaints. - Objective Vital Signs & Weight: Vital Signs (12 hours) Temp Pulse Ox 11/01/19 08:00 95 11/01/19 07:45 97.7 F 11/01/19 03:16 98.8 F Weight Admit Weight 162 lb 4.8 oz Weight 159 lb Most Recent Monitor Data Heart Rate from ECG 81 NIBP 113/65 NIBP BP-Mean 81 Respiration from ECG 19 SpO2 95 I&O: 10/31/19 11/01/19 11/02/19 06:59 06:59 06:59 Intake Total 1320 Output Total 975 Balance 345 Result Diagrams: 10/31/19 03:21 10/31/19 03:21 Additional Labs: Accuchecks 11/01/19 00:26 POC Glucose 134 H Hospitalist ROS - Review of Systems All other systems reviewed; all pertinent +/- noted in HPI/Subj - Medication Medications: Active Medications Generic Name Dose Route Start Last Admin Trade Name Freq PRN Reason Stop Dose Admin Albuterol/Ipratropium 3 ml 10/31/19 08:14 10/31/19 08:22 Duoneb NEB 3 ml [id number] PRN Administration SOB &/or Wheezing Enoxaparin Sodium 40 mg 10/31/19 09:00 11/01/19 10:26 Lovenox SC 40 mg 0900 EV Administration Famotidine 20 mg 10/30/19 21:00 11/01/19 10:28 Pepcid PO 20 mg BID EV Administration Fish Oil 2,000 mg 11/01/19 09:00 11/01/19 10:38 Fish Oil PO Not Given MW EV Levothyroxine Sodium 100 mcg 11/01/19 09:00 11/01/19 10:27 Synthroid PO 100 mcg DAILY EV Administration Sertraline HCl 50 mg 10/31/19 21:00 11/01/19 10:27 Zoloft PO 50 mg BID EV Administration Sodium Chloride 10 ml 10/31/19 09:00 11/01/19 10:28 Flush - Normal Saline IVF 10 ml Q12HR EV Administration Tramadol HCl 50 mg 10/31/19 10:45 10/31/19 11:22 Ultram PO 50 mg Q6H PRN Administration Mild-Moderate Pain (1-5) Tramadol HCl 100 mg 10/31/19 10:45 11/01/19 10:24 Ultram PO 100 mg Q6H PRN Administration Moderate to Severe Pain (6-10) - Exam General Appearance: NAD, awake alert Eye: PERRL, anicteric sclera ENT: normocephalic atraumatic, no oropharyngeal lesions, moist mucosa Neck: supple, symmetric, no JVD, no thyromegaly, no lymphadenopathy, no carotid bruit Heart: RRR, no murmur, no gallops, no rubs, normal peripheral pulses Respiratory: CTAB, no wheezes, no rales, no ronchi, normal chest expansion, no tachypnea, normal percussion Gastrointestinal: soft, non-tender, non-distended, normal bowel sounds, no palpable masses, no hepatomegaly, no splenomegaly, no bruit Extremities: no cyanosis, no clubbing, no edema Skin: normal turgor Skin - other findings: Breakdown, stage II sacral bedsore Neurological: cranial nerve grossly intact, normal sensation to touch, no weakness, no focal deficits, no new deficit Musculoskeletal: normal tone, normal strength, no muscle wasting Psychiatric: normal affect, normal behavior, A&O x 3 Hosp A/P (1) Acute respiratory failure with hypoxia and hypercarbia Code(s): J96.01 - ACUTE RESPIRATORY FAILURE WITH HYPOXIA; J96.02 - ACUTE RESPIRATORY FAILURE WITH HYPERCAPNIA Status: Acute Plan: Resolved (2) History of rectal cancer Code(s): Z85.048 - PRSNL HX OF MALIG NEOPLM OF RECTUM, RECTOSIG JUNCT, AND ANUS Status: Acute (3) Pleural effusion Code(s): J90 - PLEURAL EFFUSION, NOT ELSEWHERE CLASSIFIED Status: Acute (4) Rectal cancer metastasized to lung Code(s): C20 - MALIGNANT NEOPLASM OF RECTUM; C78.00 - SECONDARY MALIGNANT NEOPLASM OF UNSPECIFIED LUNG Status: Acute - Plan Appreciate pulmonary and oncology reccs Pending pleural fluid biopsy Levaquin switched to PO Tramadol is controlling pain, will continue with this Ativan PRN for anxiety/sob/breathlessness *please note family would like to be present in the room if provider is to deliver result about biopsy Code: Full Disposition: Pending pleural fluid biopsy. Guarded prognosis, likely this is metastatic disease. Eventual dispo to nursing facility for comfort care is probable.
--- NOTE | 2019-11-01 15:48 | PDOC.MOPN ---
Interval History: comfortable. breathing improved. - Vital Signs Vital Signs: Vital Signs (12 hours) Temp Pulse Ox 11/01/19 15:19 98.9 F 11/01/19 08:00 95 11/01/19 07:45 97.7 F Weight Admit Weight 162 lb 4.8 oz Weight 159 lb Most Recent Monitor Data Heart Rate from ECG 82 NIBP 111/60 NIBP BP-Mean 77 Respiration from ECG 14 SpO2 96 - Physical Exam General: Alert HEENT: Atraumatic, PERRLA, EOMI, Mucous membr. moist/pink Lungs: Clear to auscultation, Normal air movement Cardiovascular: Regular rate, Normal S1, Normal S2, No murmurs, Gallops, Rubs Abdomen: Normal bowel sounds, Soft, No tenderness, No hepatospenomegaly, No masses Extremities: No clubbing, No cyanosis, No edema, Normal pulses, No tenderness/ swelling Skin: No rashes (perineum breakdown), No breakdown, No significant lesion Neurological: Normal speech - Labs Result Diagrams: 10/31/19 03:21 10/31/19 03:21 Lab results: Laboratory Results - last 24 hr 11/01/19 00:26: POC Glucose 134 H 10/31/19 09:03: Pleural pH TNP 10/31/19 08:00: Fluid Diff Path Review Status: lab reviewed by me A/P - Problem (1) Acute respiratory failure with hypoxia and hypercarbia Current Visit: Yes Code(s): J96.01 - ACUTE RESPIRATORY FAILURE WITH HYPOXIA; J96.02 - ACUTE RESPIRATORY FAILURE WITH HYPERCAPNIA Status: Acute (2) 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
[2019-11-02] MEDS ORDERED: predniSONE 20 MG TAB PO SCH (08:00)
[2019-11-02] MEDS: Enoxaparin Sodium 40 MG/0.4 ML SYRINGE SC SCH (09:49)
[2019-11-02] MEDS: Levothyroxine Sodium 100 MCG TAB PO SCH (09:50)
[2019-11-02] MEDS: Famotidine 20 MG TAB PO SCH (09:50)
--- NOTE | 2019-11-02 12:05 | PRG ---
DATE OF SERVICE: 11/02/2019 SUBJECTIVE: The patient is doing okay. She did not voice any complaints about her breathing today. OBJECTIVE: VITAL SIGNS: On exam, temperature is 99.2, pulse 98, and blood pressure 118/56. HEENT: Unremarkable. NECK: No adenopathy or JVD. LUNGS: Clear, except at the bases where she has diminished breath sounds. CARDIAC: S1 and S2. Regular. ABDOMEN: Soft. EXTREMITIES: No edema. ASSESSMENT: Likely lung cancer with bilateral malignant effusions. PLAN: She has been deemed to be not a candidate for treatment. I think the family is proceeding with hospice type care. Job ID: [id number]
[2019-11-02 13:29] VITALS: BP 122/61
[2019-11-02 15:48] VITALS: TEMP 99.6
--- NOTE | 2019-11-02 17:12 | PDISCHARGE ---
Discharge - Disposition Disposition: RESIDENTIAL FACILITY - Patient Instructions Pre-Printed Education: Hypoxia, Acute Respiratory Failure, Adult Care Plan Goals: FOCUS: Transition from Acute Care after Discharge GOAL: Successful transition to care in the community YOUR TASKS: (1) review all information outlined in your discharge packet (2) follow any instructions outlined in your discharge packet (3) contact your primary care provider if you have questions or need additional assistance - Referrals and PCP Follow-Up Referrals and PCP Follow-Up: [facility], [place] [Other] Liza Philip MD [Active] - JOSE DE JESUS MEJÍA [Primary Care Provider] - - Activity Instructions Activity:: Activity as Tolerated - Nourishment Instructions Nourishment:: Regular Diet Course - Course Orders, Labs, Meds: Presenting with SOB. Found to have large left pleural effusion with bilaterally pulmonary nodules, concerning for metastatic disease. Has history of rectal cancer receiving treatment in the outpatient. Therapeutic thoracentesis was done and pleural fluid biopsy was sent. Oncology team consulted, high liklihood this is metastatic disease. Decision was made for patient to be transfered to retirement facility and will follow up with her oncologist to discuss biopsy result. If it is metastatic, patient would like to pursue comfort care and symptom management in the nursing facility. 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
--- NOTE | 2019-11-02 17:17 | PDOC.BPN ---
- Brief Progress Note DISCHARGE SUMMARY Discharge Patient Name: ANA MARIA OQUENDO Date of : 1935 Patient Status: Inpatient Attending Provider: David Branch Date: 11/02/19 17:12 Initialization Date: 11/02/19 17:12 Discharge - Disposition Disposition: [facility] FACILITY - Patient Instructions Pre-Printed Education: Hypoxia, Acute Respiratory Failure, Adult Care Plan Goals: FOCUS: Transition from Acute Care after Discharge GOAL: Successful transition to care in the community YOUR TASKS: (1) review all information outlined in your discharge packet (2) follow any instructions outlined in your discharge packet (3) contact your primary care provider if you have questions or need additional assistance - Referrals and PCP Follow-Up Referrals and PCP Follow-Up: [facility], [place] [Other] Liza Philip MD [Active] - JOSE DE JESUS MEJÍA [Primary Care Provider] - - Activity Instructions Activity:: Activity as Tolerated - Nourishment Instructions Nourishment:: Regular Diet Course - Course Orders, Labs, Meds: Presenting with SOB. Found to have large left pleural effusion with bilaterally pulmonary nodules, concerning for metastatic disease. Has history of rectal cancer receiving treatment in the outpatient. Therapeutic thoracentesis was done and pleural fluid biopsy was sent. Oncology team consulted, high liklihood this is metastatic disease. [facility] and will follow up with her oncologist to discuss biopsy result. If it is metastatic, patient would like to pursue comfort care and symptom management in the nursing facility. 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
[2019-11-02] MEDS: traMADol HCl 50 MG TAB PO PRN (17:28)
--- NOTE | 2019-11-04 06:58 | PQF ---
ANA MARIA OQUENDO SUNIL [id number] [id number] CLINICAL DOCUMENTATION CLARIFICATION FORM: POST DISCHARGE Addendum to original discharge summary date: ____ Late entry note date: __ DATE: 11/04/2019 ATTN: JOSE ALFREDO DU Please exercise your independent, professional judgment in responding to the clarification form. Clinical indicators are provided on the bottom of this form for your review Please check appropriate box(s): [ X ] Malignant pleural effusion due to rectal cancer [ ] Malignant pleural effusion due to Lung cancer [ ] Malignant pleural effusion due to other diagnosis [ ] Unable to determine For continuity of documentation, please document condition throughout progress notes and discharge summary. Thank You. 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- Progress note, 11/01, Concepcion Lona - presents with SBO, found to have large left pleural effusion with bilaterally pulmonary nodules, concerning for metastatic disease--Progress note, 11/02, JOSE ALFREDO DU - Hx of rectal cancer receiving treatment-Progress note, 11/02, JOSE ALFREDO DU - Pleural effusion: acute--Progress note, 11/02, JOSE ALFREDO DU - RISK FACTORS -Acute respiratory failure with hypoxia and hypercarbia--Progress note, 11/02, JOSE ALFREDO DU TREATMENT: -Left sided thoracentesis-OP report, 10/31, Clay Fernandez MD (This form is maintained as a part of the permanent medical record) 2014 [employer]. All Rights Reserved [email or web address]
== END 2019-11-02 17:45 | DRG 374 ==
LOC: ERS 16:00 → IMCU/EMU 19:32
PROVIDERS: ADMIT Emergency Medicine; ATTEND Emergency Medicine
PROC: 0W9B3ZZ Drainage of Left Pleural Cavity, Percutaneous Approach (ICD-10-PCS; principal; 2019-11-01)
DX: C20 Malignant neoplasm of rectum (principal); J96.01 Acute respiratory failure with hypoxia; J96.02 Acute respiratory failure with hypercapnia; C78.00 Secondary malignant neoplasm of unspecified lung; C79.89 Secondary malignant neoplasm of other specified sites; J91.0 Malignant pleural effusion; E78.00 Pure hypercholesterolemia, unspecified; M19.90 Unspecified osteoarthritis, unspecified site; Z51.5 Encounter for palliative care; I10 Essential (primary) hypertension; E03.9 Hypothyroidism, unspecified; F17.210 Nicotine dependence, cigarettes, uncomplicated; Z88.6 Allergy status to analgesic agent; Z85.3 Personal history of malignant neoplasm of breast; Z90.710 Acquired absence of both cervix and uterus
CPT/HCPCS: 36415; 36416; 51702; 71045; 80048; 80053; 81003; 81015; 82150; 82550; 82805; 82945; 83605; 83615; 83880; 84157; 84478; 84484; 85025; 85060; 87040; 87070; 87086; 87116; 87205; 87206; 88112; 88305; 88341; 88342; 89051; 93005; 93970; 94640; 94660; 96365; 96375; J0692; J1642; J1650; J1956; J2920; J3370; J7512; J7620